=== PATIENT | female | born 1970 | race Caucasian/White ===

== ENCOUNTER → 2016-07-23 | Outpatient (CLI) | payer BC ==
[~2016-07-23] MED LIST: ACET-1311 PO; ALPR-411 PO; CITA40TA12 PO; IBUP-1050 PO; PRENTAB26 PO; PROM25TA9 PO
== END | disposition home or self-care (01) ==
LOC: C.LAB1850 17:00
PROVIDERS: ATTEND Obstetrics & Gynecology
DX: Z32.00 Encounter for pregnancy test, result unknown (principal)

== ENCOUNTER → 2017-06-10 | Outpatient (CLI) | payer BC ==
--- NOTE | 2017-06-13 07:38 | MAMMOGRAPHY REPORT ---
BILATERAL DIGITAL SCREENING MAMMOGRAM TOMOSYNTHESIS WITH CAD: 06/10/2017 TECHNIQUE: Breast tomosynthesis in addition to standard 2D mammography was performed. Current study was also evaluated with a Computer Aided Detection (CAD) system. COMPARISON: Comparison is made to exams dated: 03/25/2016 mammogram, 10/14/2014 mammogram, 01/27/2011 m ammogram, and 09/14/2013 mammogram - [facility]. BREAST COMPOSITION: The tissue of both breasts is heterogeneously dense, which may obscure small mas ses. FINDINGS: There is a small cluster of calcifications as well as other surrounding loosely grouped robyn cifications in the left upper outer quadrant, for which spot magnification views are recommended for further evaluation. Additionally, there is a 12 mm asymmetry within the left lateral anterior breast seen on the cc view only, for which spot compression tomosynthesis views and possible breast ultraso und are recommended for further evaluation. The remainder of both breasts demonstrate no suspicious masses, calcifications, or areas of test automation architect ural distortion. IMPRESSION: ACR BI-RADS CATEGORY 0: INCOMPLETE EVALUATION: NEED ADDITIONAL IMAGING EVALUATION Left breast calcifications and left breast asymmetry, for which additional imaging evaluation is xavi mmended. The patient will be called to schedule an appointment. Approximately 10% of breast cancers are not detected with mammography. A negative mammographic report should not delay biopsy if a clinically suggestive mass is present. Celine Temple M.D. ah/:06/10/2017 13:25:05 Collection Systems Technician: Kirstin PENA)(Altagracia), [facility] letter sent: Addl Imaging 0 BI-RADS Code: ACR BI-RADS Category 0: Incomplete Evaluation: Need Additional Imaging Evaluation
== END | disposition home or self-care (01) ==
LOC: C.MAMM 08:57
PROVIDERS: ATTEND Obstetrics & Gynecology
DX: Z12.31 Encounter for screening mammogram for malignant neoplasm of breast (principal); R92.1 Mammographic calcification found on diagnostic imaging of breast; N64.89 Other specified disorders of breast

== ENCOUNTER → 2017-06-16 | Outpatient (CLI) | payer BC ==
--- NOTE | 2017-06-16 14:30 | MAMMOGRAPHY REPORT ---
UNILATERAL LEFT DIGITAL DIAGNOSTIC MAMMOGRAM TOMOSYNTHESIS AND TARGETED LEFT ULTRASOUND: 06/16/2017 CLINICAL HISTORY: Callback from screening mammogram for left breast calcifications and left breast as ymmetry. TECHNIQUE: Breast tomosynthesis in addition to standard 2D mammography was performed. Spot magnific ation left CC and ML views and spot compression left CC and MLO 2-D and tomosynthesis images were obt ained. COMPARISON: Comparison is made to exams dated: 06/10/2017 mammogram, 03/25/2016 mammogram, 10/14/2014 ma mmogram, 09/14/2013 mammogram, and 01/27/2011 mammogram - [facility]. BREAST COMPOSITION: The tissue of the left breast is heterogeneously dense, which may obscure small masses. FINDINGS: The previously described nodular asymmetry seen within the left lateral anterior breast on the cc view effaces to a baseline appearance on the additional spot compression views and appears sim ilar to multiple prior exams on the additional views including the 2013 and 2014 exams. The tissue i n this region has the appearance of normal fibroglandular tissue, without a suspicious mass or justine ectural distortion noted on the additional tomosynthesis images. Spot magnification views of the left breast demonstrate a newly visualized 4 mm cluster of faint punc [place] and amorphous calcifications in the left upper outer quadrant. Given that the cluster is new, i t is indeterminate and stereotactic biopsy is recommended for further evaluation. Other possible ken nt grouped similar-appearing calcifications are seen anterior and superior to this cluster on the mag nification views. A few other punctate scattered benign-appearing calcifications are also seen withi n the left breast on the additional views which are stable to prior exams. Targeted ultrasound was performed of the left lateral periareolar breast and left subareolar breast i n the region of the mammographic asymmetry. Sonographically normal tissue is seen in these regions, without evidence of a mass or other suspicious sonographic abnormality. IMPRESSION: ACR BI-RADS CATEGORY 4: SUSPICIOUS, TARGETED ULTRASOUND ACR BI-RADS CATEGORY 4: SUSPICIO US 1. New small 4 mm cluster of punctate and amorphous calcifications in the left upper outer quadrant. The calcifications are indeterminate and stereotactic biopsy is recommended for further evaluation. 2. Pending benign pathology results of the left breast biopsy, recommend follow-up diagnostic mammog andres of the left breast in 6 months to confirm stability of other similar appearing calcifications an terior and superior to the biopsied cluster. 3. Left lateral anterior breast asymmetry effaces to a baseline appearance on the additional views, without suspicious sonographic abnormality evident. Findings are benign and compatible with normal f ibroglandular tissue. A phone call was made to the physician's office to confirm faxed results were received. The patient has been verbally notified of the results. She tentatively scheduled the biopsy before [facility]. Approximately 10% of breast cancers are not detected with mammography. A negative mammographic report should not delay biopsy if a clinically suggestive mass is present. Celine Temple M.D. ah/:06/16/2017 10:04:22 Logistics Loss Prevention Manager: Carmen PENA)(Altagracia), [facility] letter sent: Abnormal 4/5 BI-RADS Code: ACR BI-RADS Category 4: Suspicious Ultrasound BI-RADS: ACR BI-RADS Category 4: Suspici ous
== END | disposition home or self-care (01) ==
LOC: C.MAMM 09:21
PROVIDERS: ATTEND Obstetrics & Gynecology
DX: R92.1 Mammographic calcification found on diagnostic imaging of breast (principal); N64.89 Other specified disorders of breast

== ENCOUNTER → 2017-06-22 | Outpatient (CLI) | payer BC ==
--- NOTE | 2017-06-22 14:51 | Discharge Instructions ---
Discharge Instructions Procedure Procedure Date: Jun 22, 2017. Reason for visit: Left Calcifications. Discharge Discharge Date: Jun 22, 2017. Discharge Diagnosis: status post breast biopsy Instructions Activity Recommendations: Additional Limitations (see below) Return to School/Work: no limitations Recommended Home Diet: No Limitations Provider Instructions: ACTIVITY RECOMMENDATIONS: * No lifting, pushing, pulling or exercising the affected side for three days. RETURN TO SCHOOL/WORK: * You may return to work/school after the procedure, but do not perform any strenuous activities for 24 to 48 hours. MEDICATIONS: * Tylenol (two 325 mg) every four to six hours if needed for mild pain (if not allergic to Tylenol). DIET: * Resume previous diet. SPECIAL CARE INSTRUCTIONS: * Keep biopsy site dry for 24 hours. May shower after 24 hours, but do not soak (bathe) incision. * May remove Tegaderm (plastic patch) tomorrow AFTER showering. * Leave the steri-strips on for one week. Allow the steri-strips to fall off by themselves. If not off after one week, you may remove them. You may place a Bandaid crosswise over the strips, if desired. * Apply ice 10 minutes on and 10 minutes off as needed. * Wear a bra at bedtime to sleep more comfortably for 2-3 days. * Your referring physician should have the results after approximately 5 to 7 business days. * Call for unusual bleeding, fever, drainage, etc or if you have any questions call during normal business hours or after hours call Dr Temple, [phone]. FOLLOW UP VISIT: Follow-up with Referring Physician as scheduled. Allergies Coded Allergies: Penicillins (Verified Allergy, Mild, HIVES, 03/14/15) HIVES Sulfa Drugs (Verified Adverse Reaction, Mild, QUEASY, 03/14/15) Sulfamethoxazole (Verified Adverse Reaction, Mild, 03/14/15) AMALIA Gray Recommendations: Call your doctor if: * Temperature above 101 degrees * Pain not relieved by pain medicine ordered * There is increased drainage or redness from any incision * You have any unanswered questions or concerns. Your Doctors Instructions noted above were prepared by provider Celine Temple. Patient Signature Section: Patient Instructions Signature Page Selene Muhammad Patient (or Guardian) Signature/Date: I have read and understand the instructions given to me by my caregivers. Caregiver/RN/Doctor Signature/Date: The above-named patient and/or guardian has received patient instructions on this date. + Original Patient Signature Page (only) stays with chart. Please make copy for patient.
--- NOTE | 2017-06-22 15:21 | MAMMOGRAPHY REPORT ---
STEREOTACTIC GUIDED BIOPSY LEFT BREAST: 06/22/2017 CLINICAL HISTORY: Indeterminate calcifications in the left upper outer quadrant. PATIENT CONSENT: The procedure, risks, benefits, and alternatives of stereotactic biopsy with clip pl acement were discussed with the patient, and verbal and written consent was obtained. A timeout was performed immediately prior to the procedure. PROCEDURE DESCRIPTION: With stereotactic guidance, aseptic technique, and lidocaine as a local anesth etic (1% lidocaine to anesthetize the skin and 1% lidocaine with epinephrine to anesthetize the deepe r tissues), the calcifications of concern in the left upper outer quadrant were sampled multiple time s with a 9-gauge vacuum-assisted biopsy needle (Entrisphere Eviva). The path of approach was lateral. The specimen radiograph demonstrates calcifications to be present in the samples. A metallic marker cli p was placed at the biopsy site. This was confirmed on postprocedure mammograms. Direct pressure wa s applied at the biopsy site and hemostasis was readily achieved. The patient tolerated the procedur e without complication. She was given wound care instructions. COMPARISON: Comparison is made to exams dated: 06/16/2017 ultrasound, 06/16/2017 mammogram, 06/10/2017 garima mogram, 03/25/2016 mammogram, 10/14/2014 mammogram, and 01/27/2011 mammogram - [facility]. IMPRESSION: STEREOTACTIC GUIDED BIOPSY Stereotactic biopsy of indeterminate calcifications in the left upper outer quadrant, with clip place ment. The patient will receive pathology results from her referring provider. Pending benign patho logy results, recommend follow-up diagnostic mammograms of the left breast in 6 months to confirm sta bility of other similar appearing calcifications anterior and superior to the biopsied cluster. Celine Temple M.D. /:06/22/2017 14:52:52 Asbestos Removal Supervisor: Edyta Nettles RT(R)(M), [facility]
--- NOTE | 2017-06-22 15:25 | MAMMOGRAPHY REPORT ---
UNILATERAL LEFT DIGITAL DIAGNOSTIC MAMMOGRAM: 06/22/2017 CLINICAL HISTORY: Status post left breast biopsy. TECHNIQUE: Post procedure left ML and cc views were obtained. COMPARISON: Comparison is made to exams dated: 06/16/2017 ultrasound, 06/16/2017 mammogram, 06/10/2017 garima mogram, 03/25/2016 mammogram, 10/14/2014 mammogram, and 09/14/2013 mammogram - [facility]. BREAST COMPOSITION: The tissue of the left breast is heterogeneously dense, which may obscure small masses. FINDINGS: A new biopsy marker clip is seen at the site of the biopsied calcifications in the left up per outer quadrant. No significant postbiopsy hematoma is seen. IMPRESSION: POST PROCEDURE IMAGING FOR MARKER PLACEMENT New biopsy marker clip status post left breast stereotactic biopsy. Pathology results are pending. Pending benign pathology results, recommend follow-up diagnostic mammograms of the left breast in 6 [facility]. Approximately 10% of breast cancers are not detected with mammography. A negative mammographic report should not delay biopsy if a clinically suggestive mass is present. Celine Temple M.D. ah/:06/22/2017 15:08:46 Slasher: Celine Temple MD, [facility] BI-RADS Code: Post Procedure Imaging For Marker Placement
== END | disposition home or self-care (01) ==
LOC: C.MAMM 14:02
PROVIDERS: ATTEND Obstetrics & Gynecology
DX: R92.0 Mammographic microcalcification found on diagnostic imaging of breast (principal); N60.92 Unspecified benign mammary dysplasia of left breast; N60.22 Fibroadenosis of left breast; N60.12 Diffuse cystic mastopathy of left breast

== ENCOUNTER → 2017-08-09 | Outpatient (CLI) | payer BC ==
--- NOTE | 2017-08-10 07:58 | MAMMOGRAPHY REPORT ---
BREAST MRI OF BOTH BREASTS : 08/09/2017 CLINICAL HISTORY: 46-year-old woman with recent biopsy-proven atypical ductal hyperplasia in the left upper outer breast. Family history of breast cancer. COMPARISON: Comparison is made to exams dated: 06/22/2017 mammogram, 06/16/2017 ultrasound, 06/22/2017 s tereotactic biopsy, 06/16/2017 mammogram, 06/10/2017 mammogram, and 03/25/2016 mammogram - [facility]. TECHNIQUE: Using a 1.5 Zoraida magnet and dedicated breast coil, multisequence axial images were obtain ed through the breasts. After uneventful IV administration of 8 mL of Gadavist, dynamic multiphase c ontrast-enhanced axial images, and sagittal postcontrast were obtained. Temporal subtraction axial i mages and 3-D MIP images are provided. Everything was then reviewed on a 3-D workstation, [employer]. FINDINGS: Right breast: There is mild to moderate background parenchymal enhancement. There are a few scattere d subcentimeter cysts in the right breast. No suspicious enhancing mass, definite non-mass enhanceme nt, suspicious kinetics or architectural distortion are identified in the right breast. No focal ski n thickening or nipple retraction. The retromammary fat is intact. No suspicious right axillary lym phadenopathy. Left breast: There is susceptibility artifact from a biopsy marker clip in the 3:00 posterior versus retroareolar left breast, denoting the site of recent stereotactic biopsy which yielded a small focus of atypia. No dominant mass or non-mass enhancement is seen at the site of the biopsy marker clip. No definite evidence of a suspicious enhancing mass, non-mass enhancement, architectural distortion or suspicious kinetics are identified in the left breast. No suspicious left axillary lymphadenopath y. IMPRESSION: ACR BI-RADS CATEGORY 4: SUSPICIOUS 1. Evidence of recent stereotactic biopsy in the 3:00 posterior versus retroareolar left breast, den oted by a biopsy marker clip, denoting the location of small focus of biopsy-proven atypia. 2. No suspicious mass or definite evidence of non-mass enhancement in the left breast near the biops y marker clip to suggest malignancy although surgical consultation for excisional biopsy is still rec ommended given the pathologic finding. 3. No MRI evidence of malignancy in the right breast. No suspicious axillary adenopathy bilaterally . 4. Given the family history of breast cancer and now biopsy-proven atypia in the left breast, would consider future/ongoing screening with breast MRI in addition to mammography. Laina Fonseca M.D. ay/:08/09/2017 22:37:41 Machinist Mate: tariff counsel, [facility] letter sent: Abnormal 4/5 BI-RADS Code: ACR BI-RADS Category 4: Suspicious
== END | disposition home or self-care (01) ==
LOC: C.MRI 13:01
PROVIDERS: ATTEND Surgery
DX: N60.92 Unspecified benign mammary dysplasia of left breast (principal); Z80.3 Family history of malignant neoplasm of breast

== ENCOUNTER → 2017-11-21 | Outpatient (CLI) | payer BC | END | disposition home or self-care (01) | LOC: C.PATHSPEC 13:21 | PROVIDERS: ATTEND Obstetrics & Gynecology | DX: N93.9 Abnormal uterine and vaginal bleeding, unspecified (principal) ==